=== PATIENT | female | born 1955 | race Caucasian/White ===

== ENCOUNTER 2018-06-24 15:13 | Outpatient (CLI) | payer OTHER ==
--- NOTE | 2018-06-24 15:46 | BD ---
DEXA BONE DENSITY STUDY: Date: 06/24/18 HISTORY: Postmenopausal. FINDINGS: Lumbar Spine: BMD (g/cm2) L1 0.712 T-Score: -2.5 L2 0.749 T-Score: -2.5 L3 0.799 T-Score: -2.6 L4 0.771 T-Score: -2.6 Total 0.760 T-Score: -2.6 Left Femoral Neck: 0.584 T-Score: -2.4 Total Femur: 0.815 T-Score: -1.0 IMPRESSION: Osteopenia of the left femoral bordering on the osteoporosis range. Osteoporosis of the lumbar spine. POS: [facility]
== END 2018-06-24 15:14 | disposition home or self-care (01) ==
LOC: BICMAMMO 15:13
PROVIDERS: ATTEND Family Medicine
DX: Z13.820 Encounter for screening for osteoporosis (principal); M85.852 Other specified disorders of bone density and structure, left thigh; M81.0 Age-related osteoporosis without current pathological fracture
CPT/HCPCS: 77080

== ENCOUNTER 2018-10-07 08:00 | Outpatient (CLI) | payer OTHER ==
--- NOTE | 2018-10-07 08:44 | RAD ---
Radiograph left hip 2 views: HISTORY: 63-year-old female with left hip pain FINDINGS: Joint space is maintained. Femoral head contour is maintained. No subcapital or high-grade acetabular osteophytes. No fracture or dislocation. IMPRESSION: Negative
--- NOTE | 2018-10-07 09:05 | RAD ---
RIGHT HIP 2 VIEWS: HISTORY: Sacroiliac pain, right leg weakness. FINDINGS/IMPRESSION: Mild degenerative changes of the right hip joint and sacroiliac joint. No fracture, dislocation, or other acute process. POS: [facility]
== END 2018-10-07 08:01 | disposition home or self-care (01) ==
LOC: BICRAD 08:00
PROVIDERS: ATTEND Family Medicine
DX: M53.3 Sacrococcygeal disorders, not elsewhere classified (principal); R53.83 Other fatigue; R29.898 Other symptoms and signs involving the musculoskeletal system; M16.11 Unilateral primary osteoarthritis, right hip